=== PATIENT | male | born 1950 | race Caucasian/White ===

== ENCOUNTER → 2022-11-18 10:53 | Outpatient (BNVA) | payer MEDICARE, SELFPAY | PROVIDERS: Referring Provider Family Medicine; Visit Provider Orthopaedic Surgery | DX: M75.101 Unspecified rotator cuff tear or rupture of right shoulder, not specified as traumatic (principal) | CPT/HCPCS: 99204 ==

== ENCOUNTER 2022-12-31 14:15 | Outpatient (CLI) | payer MEDICARE, SELFPAY ==
--- NOTE | 2022-12-31 14:30 | MR_ITS ---
WS: [id number] MRI RIGHT SHOULDER HISTORY: pain, prior repair. COMPARISON: 02/14/2019 TECHNIQUE: Multiplanar sequences of the shoulder joint are submitted. Severe AC joint arthritis. Large osteophytes encroach upon the supraspinatus tendon with deformity. M arked bony hypertrophy at the AC joint with encroachment upon the medial humeral head and tendon. Mod erate subacromial impingement by an osteophyte. Intermediate T2 signal in the biceps tendon at the bi cipital groove. Split tear is likely with increased fluid within the tendon sheath. Moderate atrophy supraspinatus muscle. Marked fraying along both the bursal and articular surfaces of the tendon. There is fluid on both sides of the tendon. No full-thickness tear or or retraction is i dentified. There is a large amount of fluid in the rotator cuff interval. Subscapularis and infraspin atus tendons are intact. Narrowing of the glenohumeral joint with mildly high riding humeral head. No glenoid labral tear is i dentified. MR/MR shoulder RT wo con* [id number] IMPRESSION: 1. Severe AC joint arthritis. Large osteophytes extend from the distal clavicl e and acromion towards the medial humeral head and rotator cuff. 2. There is marked fraying along both the bursal and articular surfaces of the supraspinatus tendon. No full-thickness tear identified. There are probably ve ry small superficial tears greatest along the articular surface. 3. There is a large amount of fluid between the subscapularis and supraspinatu s tendons within the rotator cuff interval. Rotator cuff interval injury is lik zoey. 4. Abnormal biceps tendon. Small caliber intermediate signal with tenosynoviti s. Suspect split tear in the bicipital groove. 5. Atrophy supraspinatus muscle similar to the prior study.
== END 2022-12-31 14:16 | disposition home or self-care (01) ==
LOC: RAD 14:19
PROVIDERS: PCP Family Medicine; Visit Provider Orthopaedic Surgery
DX: M13.811 Other specified arthritis, right shoulder (principal); M25.711 Osteophyte, right shoulder; M65.9 Synovitis and tenosynovitis, unspecified; M62.511 Muscle wasting and atrophy, not elsewhere classified, right shoulder
CPT/HCPCS: 73221

== ENCOUNTER → 2024-03-07 13:53 | Outpatient (BNVA) | payer MEDICARE, SELFPAY | PROVIDERS: PCP Family Medicine; Visit Provider Nurse Practitioner Family | DX: L30.4 Erythema intertrigo (principal); D48.5 Neoplasm of uncertain behavior of skin | CPT/HCPCS: 11102; 99214 ==

== ENCOUNTER → 2024-03-20 13:44 | Outpatient (BNVA) | payer MEDICARE, SELFPAY | PROVIDERS: PCP Family Medicine; Visit Provider Dermatology | DX: C44.619 Basal cell carcinoma of skin of left upper limb, including shoulder (principal) | CPT/HCPCS: 13121; 17313 ==

== ENCOUNTER → 2024-04-04 13:23 | Outpatient (BNVA) | payer MEDICARE, SELFPAY | PROVIDERS: PCP Family Medicine; Visit Provider Dermatology | DX: Z80.2 Family history of malignant neoplasm of other respiratory and intrathoracic organs (principal) | CPT/HCPCS: 99212 ==

== ENCOUNTER → 2024-08-03 14:05 | Outpatient (BNVA) | payer MEDICARE, SELFPAY | PROVIDERS: PCP Family Medicine; Visit Provider Nurse Practitioner Family | DX: L57.8 Other skin changes due to chronic exposure to nonionizing radiation (principal); D22.4 Melanocytic nevi of scalp and neck; S51.811A Laceration without foreign body of right forearm, initial encounter; X58.XXXA Exposure to other specified factors, initial encounter; L81.4 Other melanin hyperpigmentation; L82.1 Other seborrheic keratosis; L57.0 Actinic keratosis; Z85.828 Personal history of other malignant neoplasm of skin | CPT/HCPCS: 17000; 99213 ==

== ENCOUNTER → 2025-01-31 13:28 | Outpatient (BNVA) | payer MEDICARE, SELFPAY | PROVIDERS: PCP Family Medicine; Visit Provider Nurse Practitioner Family | DX: S51.811A Laceration without foreign body of right forearm, initial encounter (principal); L21.8 Other seborrheic dermatitis; L57.8 Other skin changes due to chronic exposure to nonionizing radiation; L81.4 Other melanin hyperpigmentation; L82.1 Other seborrheic keratosis; D22.62 Melanocytic nevi of left upper limb, including shoulder; Z08 Encounter for follow-up examination after completed treatment for malignant neoplasm; Z85.828 Personal history of other malignant neoplasm of skin; L57.0 Actinic keratosis; X58.XXXA Exposure to other specified factors, initial encounter | CPT/HCPCS: 17000; 99214 ==

== ENCOUNTER → 2025-08-06 13:29 | Outpatient (BNVA) | payer MEDICARE, SELFPAY | PROVIDERS: PCP Family Medicine; Visit Provider Nurse Practitioner Family | DX: L57.8 Other skin changes due to chronic exposure to nonionizing radiation (principal); L81.4 Other melanin hyperpigmentation; Z08 Encounter for follow-up examination after completed treatment for malignant neoplasm; Z85.828 Personal history of other malignant neoplasm of skin; L82.0 Inflamed seborrheic keratosis; Z78.9 Other specified health status; C44.41 Basal cell carcinoma of skin of scalp and neck; L57.0 Actinic keratosis | CPT/HCPCS: 11102; 17000; 17110; 99213 ==

== ENCOUNTER → 2025-08-29 08:49 | Outpatient (BNVA) | payer MEDICARE, SELFPAY | PROVIDERS: PCP Family Medicine; Visit Provider Dermatology | DX: C44.41 Basal cell carcinoma of skin of scalp and neck (principal) | CPT/HCPCS: 12032; 17311 ==